=== PATIENT | female | born 1960 | race African-American/Black ===

== ENCOUNTER 2018-02-03 12:42 | Inpatient (IN) | payer MEDICAID ==
[2018-02-03] MEDS ORDERED: Haloperidol Lactate 5 mg/mL 1mL Vial IM STA (12:58)
[2018-02-03] MEDS ORDERED: Haloperidol Lactate 5 mg/mL 1mL Vial ONE (13:03)
--- NOTE | 2018-02-03 13:07 | ED Physician Chart ---
ED Chief Complaint/HPI - Patient Information Date Seen:: 02/03/18 Time Seen:: 12:45 Chief Complaint:: AMS History of Present Illness:: onset x 2 days of AMS, ALOC, agitation, and aggressive behavior; no report of trauma, H/As, S/T, neck pain, C/P, SOB, Abd. Pain, A/N/V/D/C, fever, chills, or urinary s/s Allergies:: Allergies Allergy/AdvReac Type Severity Reaction Status Date / Time codeine Allergy Verified 02/03/18 13:02 Penicillins [PCN] Allergy Verified 02/03/18 13:01 Historian:: Patient, EMS Review:: Nurse's Note Reviewed, Old Chart Reviewed, EMS run form Reviewed ED Review of Systems - Review of Systems General/Constitutional: No fever, No chills, No weight loss, No weakness, No diaphoresis, No edema, No loss of appetite Skin: No skin lesions, No rash, No bruising Head: No headache, No light-headedness Eyes: No loss of vision, No pain, No diplopia ENT: No earache, No nasal drainage, No sore throat, No tinnitus Neck: No neck pain, No swelling, No thyromegaly, No stiffness, No mass noted Cardio Vascular: No chest pain, No palpitations, No PND, No orthopnea, No edema Pulmonary: No SOB, No cough, No sputum, No wheezing GI: No nausea, No vomiting, No diarrhea, No pain, No melena, No hematochezia, No constipation, No hematemesis G/U: No dysuria, No frequency, No hematuria, No 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, No abnormal vaginal bleed, No contraction Musculoskeletal: No bone or joint pain, No back pain, No muscle pain Endocrine: No polyuria, No polydipsia Psychiatric: Prior psych history, Depression, Anxiety, No suicidal ideation, No homicidal ideation, Auditory hallucination, No visual hallucination Hematopoietic: No bruising, No lymphadenopathy Allergic/Immuno: No urticaria, No angioedema Neurological: No syncope, No focal symptoms, No weakness, No paresthesia, No headache, No seizure, No dizziness, Confusion, No vertigo ED Past Medical History - Past Medical History Obtainable: Yes Past Medical History: HTN, DM, Dyslipidemia, Seizures, Dementia Family History: Diabetes Melitus, HTN Social History: Non Smoker, No Alcohol, No Drug Use, Single, Care Facility Surgical History: other (Left BKA) Psychiatricy History: Depression, Schizophrenia, Bipolar, Dementia Medication: Reviewed Family Medical History - Family Member Mother History Unknown: Yes ED Physical Exam - Physical Examination General/Constitutional: Awake, Well-developed, well-nourished, Alert, No distress, GCS 15, Non-toxic appearing, Ambulatory Head: Atraumatic Eyes: Lids, conjuctiva normal, PERRL, EOMI Skin: Nl inspection, No rash, No skin lesions, No ecchymosis, Well hydrated, No lymphadenopathy ENMT: External ears, nose nl, TM canals nl, Nasal exam nl, Lips, teeth, gums nl , Oropharynx nl, Tonsils nl Neck: Nontender, Full ROM w/o pain, No JVD, No nuchal rigidity, No bruit, No mass, No stridor Respiratory: Nl effort/Exclusion, Clear to Auscultation, No Wheeze/Rhonchi/Rales Cardio Vascular: RRR, No murmur, gallop, rubs, NL S1 S2, Carotid/Femoral/Distal pulses equal bilaterally GI: No tenderness/rebounding/guarding, No organomegaly, No hernia, Normal BS's, Nondistended, No mass/bruits, No McBurney tenderness : No CVA tenderness Extremities: No tenderness or effusion, Full ROM, normal strength in all extremities, No edema, Normal digits & nails Neuro/Psych: Alert/oriented, DTR's symmetric, Normal sensory exam, Normal motor strength, Judgement/insight normal, Mood normal, Normal gait, No focal deficits Misc: Normal back, No paraspinal tenderness ED Labs/Radiology/EKG Results - Lab Results Comments:: unremarkable ED Septic Shock - . Is Septic Shock (SBP<90, OR Lactate>4 mmol\L) present?: No ED Reassessment (Disposition) - Reassessment Reassessment Condition:: Improved - Diagnosis Diagnosis:: Dx: AMS; ALOC; Agitation; Bipolar Disorder; Dementia - Aftercare/Follow up Instructions Aftercare/Follow-Up Instructions:: Counseled pt regarding lab results/diagnosis & need follow up, Counseled pt & family regarding lab results/diagnosis & need follow up - Patient Disposition Discharge/Transfer:: Acute Care w/in this hosp Accepting Physician:: Dr. Weinberg Time Called:: 1500 Time Responded:: 15:00 Admitted to:: Telemetry Spoke to:: Dr. Weinberg Admitting Medical Physician:: Dr. Weinberg Condition at Disposition:: Stable, Improved
[2018-02-03 13:51] LABS: % BASOPHILS 3.2 % (0.0-2.0); % EOSINOPHILS 1.9 % (0.0-5.0); % LYMPHOCYTES 35.1 % (20.0-50.0); % MONOCYTES 6.7 % (2.0-10.0); % NEUTROPHILS 53.1 % (40.0-80.0); BASOPHILE ABSOLUTE 0.2 Th/cumm (0-0.2); EOSINOPHILE ABSOLUTE 0.1 Th/cmm (0.1-0.4); HEMATOCRIT 41.8 % (41.0-60); HEMOGLOBIN 13.7 gm/dL (12-16); LYMPHOCYTE ABSOLUTE 2.1 Th/cmm (1.5-3.0); MEAN CELL VOLUME 89.6 fl (81-100); MEAN CORPUSCULAR HEMOGLOBIN 29.3 pg (27.0-31.0); MEAN CORPUSCULAR HGB CONC 32.7 pg (28.0-36.0); MEAN PLATELET VOLUME 7.6 fl; MONOCYTE ABSOLUTE 0.4 Th/cmm (0.3-1.0); NEUTROPHILE ABSOLUTE 3.3 Th/cmm (1.8-8.0); PLATELET COUNT 233 Th/cmm (150-400); RED BLOOD COUNT 4.67 Mil/cmm (3.80-5.10); RED CELL DISTRIBUTION WIDTH 13.1 % (11.5-20.0); WHITE BLOOD COUNT 6.1 Th/cmm (4.8-10.8)
[2018-02-03 14:07] LABS: INR 0.92 (0.5-1.4); PROTHROMBIN TIME (TEST) 9.6 SECONDS (9.5-11.5)
[2018-02-03 14:12] LABS: ACETAMINOPHEN < 10.0 ug/mL (10.0-30.0); ALB/GLOB RATIO 1.2 (1.0-1.8); ALBUMIN 4.1 gm/dL (3.7-5.3); ALKALINE PHOSPHATASE 74 U/L (34-104); ANION GAP 8.7 (7.0-16.0); BILIRUBIN,TOTAL 0.3 mg/dL (0.3-1.0); BUN - UREA NITROGEN 12 mg/dL (7-25); CALCIUM SERUM 9.4 mg/dL (8.6-10.3); CARBON DIOXIDE 27.2 mEq/L (21.0-31.0); CHLORIDE 104 mEq/L (98-107); CHOLESTEROL 154 mg/dL (<200); CREATININE - SERUM 0.5 mg/dL (0.6-1.2); CREATININE KINASE 352 U/L (30-223); GFR AFRICAN-AMERICAN > 60.0 ml/min (>90); GFR NON AFRICAN-AMERICAN > 60.0 ml/min; GLUCOSE 86 mg/dL (70-105); HDL -HIGH DENSITY LIPOPROTEIN 37 mg/dL (23-92); POTASSIUM SERUM 3.9 mEq/L (3.5-5.1); SALICYLATES (ASPIRIN) < 25.0 mg/L (30.0-100.0); SGOT 14 U/L (13-39); SGPT/ALT 9 U/L (7-52); SODIUM SERUM 136 mEq/L (136-145); TOTAL PROTEIN,SERUM 7.5 gm/dL (6.0-8.3); TRIGLYCERIDES 133 mg/dL (<150)
[2018-02-03] MEDS ORDERED: Non-Formulary Item 1 EA (Acetaminophen [Pain Reliever] 650 MG) PO PRN (17:22)
[2018-02-03] MEDS ORDERED: Ipratropium Neb 0.5 mg/2.5 mL UD HHN PRN (17:26)
[2018-02-03] MEDS ORDERED: guaiFENesin 200 MG/10 ML UDC PO PRN (17:26)
[2018-02-03] MEDS ORDERED: Albuterol Nebulizer 2.5mg/3mL HHN PRN (17:26)
[2018-02-03 17:33] VITALS: BP 119/49
[2018-02-03 18:43] LABS: A1C % 4.9 % (4.0-6.0)
[2018-02-03] MEDS ORDERED: GLUCAGON HCl 1 MG KIT SUBQ PRN (20:00)
[2018-02-03] MEDS: INSULIN ASPART, RECOMBINANT 100 UNITS/ML SUBQ SCH (21:55)
[2018-02-03] MEDS: Sodium Chloride 0.9% 1,000 ML IV SCH (21:55)
--- NOTE | 2018-02-04 03:38 | Consultation ---
DATE OF CONSULTATION: 02/03/2018 NEUROLOGY CONSULTATION HISTORY OF PRESENT ILLNESS: A 58-year-old. The patient brought in because of abnormal behavior, very aggressive. The patient has altered mentation, though she is awake and alert. When you talk to her, she says "I don't want to talk." She is very withdrawn. ____ when you try examine her. PAST MEDICAL HISTORY: 1. The patient with seizures. 2. Dementia. 3. Hypertension. 4. Diabetes. 5. Dyslipidemia. The patient with history of schizophrenia, bipolar, and depression. MEDICATIONS: Per reconciliation. REVIEW OF SYSTEMS: Not obtainable. PHYSICAL EXAMINATION: VITAL SIGNS: Temperature 98.2, blood pressure 130/70, and pulse is 74. NECK: Supple, no bruits. HEART: Sounds S1, S2. LUNGS: Clear. NEUROLOGIC: She is actually awake and alert. She was trying to avoid examination. When I talked to her, she said "I want to be left alone." She did give me her name. She named simple objects, but then she would not interact much. She seems to be very awake. When she talks, her speech seems to be okay. Cannot assess her mentation as far as memory, etc. CRANIAL: Pupils react to light. She will not let me examine, but she moves all upper extremities and lower extremities. She will not let me do reflexes. IMPRESSION: 1. The patient with psychosis. 2. History of dementia. 3. History of seizures. 4. Diabetes. 5. Hypertension. 6. Dyslipidemia. PLAN: CT scan head. Continue with present management. JOB# [id number]
[2018-02-04] MEDS: INSULIN ASPART, RECOMBINANT 100 UNITS/ML SUBQ SCH ×4 (06:38→23:55)
[2018-02-04] MEDS: Calcium Carb/Vit D 500 mg/200 U Tab PO SCH ×2 (08:23→16:27)
[2018-02-04] MEDS: Multivitamin w/ Minerals Tab PO SCH (08:23)
--- NOTE | 2018-02-04 14:09 | Internal Medicine Prog Note ---
Internal Medicine Subjective - Subjective Service Date: 02/04/18 (dictated hnp) Internal Medicine Objective - Results Result Diagrams: 02/03/18 13:45 02/03/18 13:45 Recent Labs: Laboratory Last Values WBC 6.1 Th/cmm (4.8-10.8) 02/03/18 13:45 RBC 4.67 Mil/cmm (3.80-5.10) 02/03/18 13:45 Hgb 13.7 gm/dL (12-16) 02/03/18 13:45 Hct 41.8 % (41.0-60) 02/03/18 13:45 MCV 89.6 fl (81-100) 02/03/18 13:45 MCH 29.3 pg (27.0-31.0) 02/03/18 13:45 MCHC Differential 32.7 pg (28.0-36.0) 02/03/18 13:45 RDW 13.1 % (11.5-20.0) 02/03/18 13:45 Plt Count 233 Th/cmm (150-400) 02/03/18 13:45 MPV 7.6 fl 02/03/18 13:45 Neutrophils % 53.1 % (40.0-80.0) 02/03/18 13:45 Lymphocytes % 35.1 % (20.0-50.0) 02/03/18 13:45 Monocytes % 6.7 % (2.0-10.0) 02/03/18 13:45 Eosinophils % 1.9 % (0.0-5.0) 02/03/18 13:45 Basophils % 3.2 % (0.0-2.0) H 02/03/18 13:45 PT 9.6 SECONDS (9.5-11.5) 02/03/18 13:45 INR 0.92 (0.5-1.4) 02/03/18 13:45 Sodium 136 mEq/L (136-145) 02/03/18 13:45 Potassium 3.9 mEq/L (3.5-5.1) 02/03/18 13:45 Chloride 104 mEq/L (98-107) 02/03/18 13:45 Carbon Dioxide 27.2 mEq/L (21.0-31.0) 02/03/18 13:45 Anion Gap 8.7 (7.0-16.0) 02/03/18 13:45 BUN 12 mg/dL (7-25) 02/03/18 13:45 Creatinine 0.5 mg/dL (0.6-1.2) L 02/03/18 13:45 Est GFR ( Amer) > 60.0 ml/min (>90) 02/03/18 13:45 Est GFR (Non-Af Amer) > 60.0 ml/min 02/03/18 13:45 BUN/Creatinine Ratio 24.0 02/03/18 13:45 Glucose 86 mg/dL (70-105) 02/03/18 13:45 Hemoglobin A1c % 4.9 % (4.0-6.0) 02/03/18 13:45 Calcium 9.4 mg/dL (8.6-10.3) 02/03/18 13:45 Total Bilirubin 0.3 mg/dL (0.3-1.0) 02/03/18 13:45 AST 14 U/L (13-39) 02/03/18 13:45 ALT 9 U/L (7-52) 02/03/18 13:45 Alkaline Phosphatase 74 U/L (34-104) 02/03/18 13:45 Creatine Kinase 352 U/L (30-223) H 02/03/18 13:45 CK-MB (CK-2) 4.2 ng/mL (0.6-6.3) 02/03/18 13:45 Troponin I < 0.01 ng/mL (0.01-0.05) L 02/03/18 13:45 B-Natriuretic Peptide 14.2 pg/mL (5.0-100.0) 02/03/18 13:45 Total Protein 7.5 gm/dL (6.0-8.3) 02/03/18 13:45 Albumin 4.1 gm/dL (3.7-5.3) 02/03/18 13:45 Globulin 3.4 gm/dL 02/03/18 13:45 Albumin/Globulin Ratio 1.2 (1.0-1.8) 02/03/18 13:45 Triglycerides 133 mg/dL (<150) 02/03/18 13:45 Cholesterol 154 mg/dL (<200) 02/03/18 13:45 LDL Cholesterol Direct 104 mg/dL (75-193) 02/03/18 13:45 HDL Cholesterol 37 mg/dL (23-92) 02/03/18 13:45 TSH 0.79 uIU/ml (0.34-5.60) 02/03/18 13:45 Salicylates < 25.0 mg/L (30.0-100.0) L 02/03/18 13:45 Acetaminophen < 10.0 ug/mL (10.0-30.0) L 02/03/18 13:45 Ethyl Alcohol < 10 mg/dL (0-10) 02/03/18 13:45 - Physical Exam Vitals and I&O: Vital Signs Temp 97.7 F 02/03/18 17:00 Pulse 72 02/03/18 17:30 Resp 18 02/04/18 08:00 BP 119/49 02/03/18 17:33 Pulse Ox 94 02/03/18 17:30 Intake & Output 02/03/18 02/04/18 02/04/18 18:59 06:59 18:59 Intake Total 500 Balance 500 Weight (lbs) 131 lb 131 lb 129 lb 3 oz Intake: Oral 500 Other: # Voids 2 Weight Source Bedscale Bedscale Active Medications: Current Medications Acetaminophen (Tylenol) 650 mg PO Q4H PRN PRN Reason: Pain Or Fever above 101 Stop: 04/04/18 17:25 Albuterol Sulfate (Albuterol 2.5mg/3ml Neb Ud) 2.5 mg HHN Q2HRT PRN PRN Reason: Shortness of Breath or Wheeze Stop: 04/04/18 17:25 Ascorbic Acid (Vitamin C) 500 mg PO DAILY [facility] Stop: 04/05/18 08:59 Last Admin: 02/04/18 08:22 Dose: 500 mg Calcium/Vitamin D (Oscal W/Vitamin D) 1 tab PO BID [facility] Stop: 04/05/18 08:59 Last Admin: 02/04/18 08:23 Dose: 1 tab Dextrose (Glutose 40%) 15 gm PO STAT PRN PRN PRN Reason: hypoglycemia Stop: 04/04/18 17:21 Docusate Sodium (Colace) 100 mg PO DAILY [facility] Stop: 04/05/18 08:59 Last Admin: 05/17/18 08:23 Dose: Not Given Gabapentin (Neurontin) 600 mg PO BID [facility] Stop: 04/04/18 20:59 Last Admin: 02/04/18 08:23 Dose: 600 mg Glucagon (Glucagen) 1 mg SUBQ STAT PRN PRN Reason: hypoglycemia Stop: 04/04/18 19:59 Guaifenesin (Robitussin) 200 mg PO Q4HR PRN PRN Reason: Cough or Congestion Stop: 04/04/18 17:25 Sodium Chloride (Nacl 0.9%) 1,000 mls @ 80 mls/hr IV .[id number] [facility] Stop: 04/04/18 19:59 Last Admin: 02/03/18 21:55 Dose: Not Given Insulin Aspart (Novolog) 0 units SUBQ ACHS [facility]IP[facility] PRN Reason: Protocol Stop: 04/04/18 20:59 Last Admin: 02/04/18 12:00 Dose: Not Given Ipratropium [place] (Atrovent Neb 0.5mg/2.5ml) 0.5 mg HHN Q2HRT PRN PRN Reason: Shortness of Breath or Wheeze Stop: 04/04/18 17:25 Mirtazapine (Remeron) 15 mg PO HS [facility] Stop: 04/04/18 20:59 Last Admin: 02/03/18 21:55 Dose: Not Given Ondansetron HCl (Zofran) 4 mg IV Q8H PRN PRN Reason: Nausea / Vomiting Stop: 04/04/18 17:25 Quetiapine Fumarate (Seroquel) 100 mg PO HS [facility] PRN Reason: Protocol Stop: 04/04/18 20:59 Last Admin: 02/03/18 21:55 Dose: Not Given Quetiapine Fumarate (Seroquel) 100 mg PO DAILY [facility] PRN Reason: Protocol Stop: 04/05/18 08:59 Last Admin: 02/04/18 08:22 Dose: 100 mg
--- NOTE | 2018-02-04 16:31 | History & Physical ---
ADMIT DATE: 02/04/2018 CHIEF COMPLAINT: Altered mental status. HISTORY OF PRESENT ILLNESS: This is a 58-year-old -[place] female who is a resident of [facility], was admitted here to the med-surg unit due to a 2-day history of altered mental status and aggressive behavior towards nursing staff. PAST MEDICAL HISTORY: Hypertension, diabetes, dyslipidemia, seizures, dementia. FAMILY HISTORY: Noncontributory. SOCIAL HISTORY: The patient is a senior living resident, in conjunct for nursing care. PAST SURGICAL HISTORY: Left BKA. MEDICATIONS: See medication list. REVIEW OF SYSTEMS: Unable to obtain due to the patient's mental status. The patient is unable to answer questions, that is pertinent to questions. PHYSICAL EXAMINATION: GENERAL: This is an elderly female, awake and alert with some confusion, in no apparent distress. VITAL SIGNS: Temperature 97.7, heart rate 72, and blood pressure of 119/49. HEENT: Normocephalic and atraumatic. NECK: Supple. No mass. LUNGS: Clear bilaterally. HEART: ____. ABDOMEN: Soft and nontender. LABORATORY DATA: WBC 6.1, H and H 13.7 and 41.8, and platelet of 233. Sodium 136, potassium 3.9, chloride 104, BUN 12, and creatinine 0.5. Troponin 0.01. Creatinine kinase is 352. DIAGNOSTIC STUDIES: The patient had a CT of the head without contrast done, awaiting for results. ASSESSMENT: Failure to thrive, frequent falls, altered mental status, type 2 diabetes, left BKA, seizures, and hypertension. PLAN: The patient to be admitted to the med-surg unit. We will get a Neurology consultation. We will await for the patient's CT head. Do Accu-Chek with sliding scale. Fall precautions will be initiated as well as seizure precautions. The patient will be kept on IV fluids for hydration. We will continue to monitor this patient. JOB# [id number]
[2018-02-04] MEDS ORDERED: Haloperidol Lactate 5 mg/mL 1mL Vial IM ONE (22:40)
[2018-02-04] MEDS: Sodium Chloride 0.9% 1,000 ML IV SCH ×2 (23:40→23:56)
--- NOTE | 2018-02-05 09:45 | Internal Medicine Prog Note ---
Internal Medicine Subjective - Subjective Service Date: 02/05/18 Patient seen and examined:: with staff Patient is:: awake, confused Per staff patient has:: noncompliant, refusing care Internal Medicine Objective - Results Result Diagrams: 02/03/18 13:45 02/03/18 13:45 Recent Labs: Laboratory Last Values WBC 6.1 Th/cmm (4.8-10.8) 02/03/18 13:45 RBC 4.67 Mil/cmm (3.80-5.10) 02/03/18 13:45 Hgb 13.7 gm/dL (12-16) 02/03/18 13:45 Hct 41.8 % (41.0-60) 02/03/18 13:45 MCV 89.6 fl (81-100) 02/03/18 13:45 MCH 29.3 pg (27.0-31.0) 02/03/18 13:45 MCHC Differential 32.7 pg (28.0-36.0) 02/03/18 13:45 RDW 13.1 % (11.5-20.0) 02/03/18 13:45 Plt Count 233 Th/cmm (150-400) 02/03/18 13:45 MPV 7.6 fl 02/03/18 13:45 Neutrophils % 53.1 % (40.0-80.0) 02/03/18 13:45 Lymphocytes % 35.1 % (20.0-50.0) 02/03/18 13:45 Monocytes % 6.7 % (2.0-10.0) 02/03/18 13:45 Eosinophils % 1.9 % (0.0-5.0) 02/03/18 13:45 Basophils % 3.2 % (0.0-2.0) H 02/03/18 13:45 PT 9.6 SECONDS (9.5-11.5) 02/03/18 13:45 INR 0.92 (0.5-1.4) 02/03/18 13:45 Sodium 136 mEq/L (136-145) 02/03/18 13:45 Potassium 3.9 mEq/L (3.5-5.1) 02/03/18 13:45 Chloride 104 mEq/L (98-107) 02/03/18 13:45 Carbon Dioxide 27.2 mEq/L (21.0-31.0) 02/03/18 13:45 Anion Gap 8.7 (7.0-16.0) 02/03/18 13:45 BUN 12 mg/dL (7-25) 02/03/18 13:45 Creatinine 0.5 mg/dL (0.6-1.2) L 02/03/18 13:45 Est GFR ( Amer) > 60.0 ml/min (>90) 02/03/18 13:45 Est GFR (Non-Af Amer) > 60.0 ml/min 02/03/18 13:45 BUN/Creatinine Ratio 24.0 02/03/18 13:45 Glucose 86 mg/dL (70-105) 02/03/18 13:45 Hemoglobin A1c % 4.9 % (4.0-6.0) 02/03/18 13:45 Calcium 9.4 mg/dL (8.6-10.3) 02/03/18 13:45 Total Bilirubin 0.3 mg/dL (0.3-1.0) 02/03/18 13:45 AST 14 U/L (13-39) 02/03/18 13:45 ALT 9 U/L (7-52) 02/03/18 13:45 Alkaline Phosphatase 74 U/L (34-104) 02/03/18 13:45 Creatine Kinase 352 U/L (30-223) H 02/03/18 13:45 CK-MB (CK-2) 4.2 ng/mL (0.6-6.3) 02/03/18 13:45 Troponin I < 0.01 ng/mL (0.01-0.05) L 02/03/18 13:45 B-Natriuretic Peptide 14.2 pg/mL (5.0-100.0) 02/03/18 13:45 Total Protein 7.5 gm/dL (6.0-8.3) 02/03/18 13:45 Albumin 4.1 gm/dL (3.7-5.3) 02/03/18 13:45 Globulin 3.4 gm/dL 02/03/18 13:45 Albumin/Globulin Ratio 1.2 (1.0-1.8) 02/03/18 13:45 Triglycerides 133 mg/dL (<150) 02/03/18 13:45 Cholesterol 154 mg/dL (<200) 02/03/18 13:45 LDL Cholesterol Direct 104 mg/dL (75-193) 02/03/18 13:45 HDL Cholesterol 37 mg/dL (23-92) 02/03/18 13:45 TSH 0.79 uIU/ml (0.34-5.60) 02/03/18 13:45 Salicylates < 25.0 mg/L (30.0-100.0) L 02/03/18 13:45 Acetaminophen < 10.0 ug/mL (10.0-30.0) L 02/03/18 13:45 Ethyl Alcohol < 10 mg/dL (0-10) 02/03/18 13:45 RPR NONREACTIVE (NONREACTIVE) 02/03/18 13:45 - Physical Exam Vitals and I&O: Vital Signs Temp 97.7 F 02/05/18 07:40 Pulse 70 02/05/18 07:40 Resp 18 02/05/18 07:40 BP 119/63 02/05/18 07:40 Pulse Ox 100 02/05/18 07:40 Intake & Output 02/04/18 02/05/18 02/05/18 18:59 06:59 18:59 Weight (lbs) 129 lb 3 oz 129 lb Other: # Voids 1 Stool Characteristics Soft Weight Source Bedscale Bedscale Active Medications: Current Medications Acetaminophen (Tylenol) 650 mg PO Q4H PRN PRN Reason: Pain Or Fever above 101 Stop: 04/04/18 17:25 Albuterol Sulfate (Albuterol 2.5mg/3ml Neb Ud) 2.5 mg HHN Q2HRT PRN PRN Reason: Shortness of Breath or Wheeze Stop: 04/04/18 17:25 Ascorbic Acid (Vitamin C) 500 mg PO DAILY [facility] Stop: 04/05/18 08:59 Last Admin: 02/04/18 08:22 Dose: 500 mg Calcium/Vitamin D (Oscal W/Vitamin D) 1 tab PO BID [facility] Stop: 04/05/18 08:59 Last Admin: 02/04/18 16:27 Dose: 1 tab Dextrose (Glutose 40%) 15 gm PO STAT PRN PRN PRN Reason: hypoglycemia Stop: 04/04/18 17:21 Docusate Sodium (Colace) 100 mg PO DAILY [facility] Stop: 04/05/18 08:59 Last Admin: 02/04/18 08:23 Dose: Not Given Gabapentin (Neurontin) 600 mg PO BID [facility] Stop: 04/04/18 20:59 Last Admin: 02/04/18 16:27 Dose: 600 mg Glucagon (Glucagen) 1 mg SUBQ STAT PRN PRN Reason: hypoglycemia Stop: 04/04/18 19:59 Guaifenesin (Robitussin) 200 mg PO Q4HR PRN PRN Reason: Cough or Congestion Stop: 04/04/18 17:25 Sodium Chloride (Nacl 0.9%) 1,000 mls @ 80 mls/hr IV .[id number] [facility] Stop: 04/04/18 19:59 Last Admin: 02/04/18 23:56 Dose: Not Given Insulin Aspart (Novolog) 0 units SUBQ ACHS TRIPP PRN Reason: Protocol Stop: 04/04/18 20:59 Last Admin: 02/04/18 23:55 Dose: Not Given Ipratropium [place] (Atrovent Neb 0.5mg/2.5ml) 0.5 mg HHN Q2HRT PRN PRN Reason: Shortness of Breath or Wheeze Stop: 04/04/18 17:25 Mirtazapine (Remeron) 15 mg PO HS [facility] Stop: 04/04/18 20:59 Last Admin: 02/04/18 23:41 Dose: Not Given Ondansetron HCl (Zofran) 4 mg IV Q8H PRN PRN Reason: Nausea / Vomiting Stop: 04/04/18 17:25 Quetiapine Fumarate (Seroquel) 100 mg PO HS [facility] PRN Reason: Protocol Stop: 04/04/18 20:59 Last Admin: 02/04/18 23:41 Dose: Not Given Quetiapine Fumarate (Seroquel) 100 mg PO DAILY [facility] PRN Reason: Protocol Stop: 04/05/18 08:59 Last Admin: 02/04/18 08:22 Dose: 100 mg General: alert HEENT: NC/AT, PERRLA Neck: Supple Lungs: CTAB Cardiovascular: RRR, Normal S1, Normal S2, without murmur Abdomen: soft, non-tender, non-distended Neurological: alert Internal Medicine Assmt/Plan - Assessment Assessment: failure to thrive frequent falls altered mental status dm2 left bka seizures htn noncompliant - Plan Plan: seizure precautions monitor glucose fall precautions continue current plan of care Nutritional Asmnt/Malnutr-PDOC - Dietary Evaluation Malnutrition Findings (Please click <Entered> for more info): Nutritional Asmnt/Malnutrition Start: 02/04/18 15: 27 Text: Status: Complete Freq: Document 02/04/18 15:27 PAULINE (Rec: 02/04/18 15:47 LCHENG [email or web address]) Nutritional Asmnt/Malnutrition Patient General Information Nutritional Screening High Risk Diagnosis frequent falls Pertinent Medical Hx/Surgical Hx HTN, DM, hyperlipidemia, seizrue, dementia, left BKA, depression, schizophrenia, bipolar Subjective Information Pt seen resting in bed at time of visit. Spoke [facility] nurse, nurse reported pt ate well this morning, refused to talk and medical care. Current Diet Order/ Nutrition Support CCHO-75gm Pertinent Medications vit C, oscal w/vit D, colace, novolog, remeron, seroquel, nacl 0.9% Pertinent Labs 02/03 Cr 0.5, glucose 86, A1c 4 .9 Nutritional Hx/Data Height 5 ft 2 in Height (Calculated Centimeters) 157.5 Current Weight (lbs) 129 lb Weight (Calculated Kilograms) 58.5 Weight (Calculated Grams) 54746.4 [place] Body Weight 100 % [place] Body Weight 129 Body Mass Index (BMI) 23.6 Weight Status Approriate GI Symptoms GI Symptoms None Last BM not indicated Difficult in: None Skin Integrity/Comment: Per EMR, left foot above knee amputation. patient refused to be assessed. Estimated Nutritional Goals BEE in Kcals: Using Current wt Calories/Kcals/Kg 25-30 Kcals Calculated [id number] Protein: Using Current wt Protein g/k-1.2 Protein Calculated 60-72 Fluid: ml 1500-1800ml (1ml/kcal) Nutritional Problem No current Nutrition Prob Problem N/A Malnutrition Alert Is there a minimum of two criteria No selected? Query Text:Check all the applicable criteria. A minimum of two criteria are recommended for diagnosis of either severe or non-severe malnutrition. Malnutrition Related to Morbid Obesity Malnutrition related to morbid obesity No Intervention/Recommendation Comments 1. Continue with CCHO-75gm diet as ordered. 2. Monitor PO intake, wt, labs and skin integrity 3. F/U as high risk in 2-3 days, 02/06-02/07 Expected Outcomes/Goals Expected Outcomes/Goals 1. PO intake to meet at least 75% of nutritional needs. 2. Wt stability, skin to remain intact, labs to approach WNL.
[2018-02-05] MEDS: INSULIN ASPART, RECOMBINANT 100 UNITS/ML SUBQ SCH ×4 (10:23→21:18)
[2018-02-05] MEDS: Multivitamin w/ Minerals Tab PO SCH (10:26)
[2018-02-05] MEDS: Calcium Carb/Vit D 500 mg/200 U Tab PO SCH ×2 (10:26→16:30)
--- NOTE | 2018-02-05 19:41 | Consultation ---
DATE OF CONSULTATION: 02/05/2018 REASON FOR CONSULTATION: Agitated behavior. HISTORY OF PRESENT ILLNESS: The patient is a 58-year-old -Citizen Of [place] woman, resident of [facility]. This patient has been admitted because of the altered level of mental status. The patient has been diagnosed with hypertension, diabetes, dyslipidemia, seizures and the patient is reported to have been out of control. The patient has to be given a dose of Haldol, Ativan, and Benadryl last night to contain her behavior. The patient's ____ interview has been very irritable, angry and is stating that she needs to be leaving the hospital. She does not want to be in here. PAST PSYCHIATRIC HISTORY: Details are not known. MEDICAL HISTORY: As mentioned earlier, the patient has history of hypertension, diabetes mellitus, dyslipidemia, and seizure disorder. SUBSTANCE ABUSE HISTORY: None. MENTAL STATUS EXAMINATION: The patient is a 58-year-old, looking her stated age, superficially cooperative. Eye contact is poor. Mood is noted to be irritable. Affect is constricted. The patient has paranoid delusions, but denies any command hallucinations. Insight and judgment at this time are noted to be fair. Impulse control is also noted to be fair. The patient is not presenting with any threats to harm self or others at this time. The patient is alert and aware that she is in the hospital. DIAGNOSTIC IMPRESSION: AXIS I: Psychiatric disorder, not otherwise specified, rule out schizophrenia, chronic paranoid type. AXIS II: None. AXIS III: As per Dr. Weinberg. IMMEDIATE TREATMENT PLAN: The patient is going to be continued on the Seroquel and followed up. JOB# [id number]
[2018-02-05 20:37] LABS: URINE BILIRUBIN NEGATIVE (NEGATIVE); URINE BLOOD NEGATIVE (NEGATIVE); URINE GLUCOSE (UA) NEGATIVE (NEGATIVE); URINE KETONE NEGATIVE (NEGATIVE); URINE LEUKOCYTE ESTERASE NEGATIVE (NEGATIVE); URINE NITRATE NEGATIVE (NEGATIVE); URINE PH 6.5 (4.6 - 8.0); URINE PROTEIN NEGATIVE (NEGATIVE); URINE SOURCE CLEAN C; URINE UROBILINOGEN 0.2 E.U./dL (0.2 - 1.0)
[2018-02-05 20:48] LABS: URINE CLARITY CLEAR (CLEAR); URINE COLOR YELLOW; URINE MICROSCOPIC INDICATED? NO
== END 2018-02-05 21:15 | DRG 52 ==
LOC: ER 12:42 → MSI 16:03
PROVIDERS: ADMIT Internal Medicine; ATTEND Internal Medicine
DX: G93.41 Metabolic encephalopathy (principal); F20.0 Paranoid schizophrenia; R62.7 Adult failure to thrive; E11.9 Type 2 diabetes mellitus without complications; I10 Essential (primary) hypertension; E78.5 Hyperlipidemia, unspecified; F31.9 Bipolar disorder, unspecified; F29 Unspecified psychosis not due to a substance or known physiological condition; G40.909 Epilepsy, unspecified, not intractable, without status epilepticus; Z91.81 History of falling; Z86.69 Personal history of other diseases of the nervous system and sense organs; Z89.512 Acquired absence of left leg below knee; Z88.0 Allergy status to penicillin; Z88.5 Allergy status to narcotic agent; Z83.3 Family history of diabetes mellitus; Z82.49 Family history of ischemic heart disease and other diseases of the circulatory system
CPT/HCPCS: 36415-UA; 80053-TC; 80061-TC; 80320-TC; 80329-TC; 81003-TC; 82550-TC; 82553; 82948-90; 83036-90; 83880-TC; 84443-TC; 84484-TC; 85025-TC; 85610-TC; 86592-TC; 94760; J1200; J1630; J1815; J2060; Z7610